=== PATIENT | female | born 1935 | race Caucasian/White ===

== ENCOUNTER 2016-12-17 06:01 | Inpatient (IN) | payer OTHER ==
[~2016-12-17] VITALS: Ht 167.6 cm; Wt 107.2 kg
[2016-12-17 07:22] LABS: BASOPHIL COUNT 0.1 K/uL (0-0.1); EOSINOPHIL (%) 0.7 % (0-5); EOSINOPHIL COUNT 0.1 K/uL (0-0.3); HEMATOCRIT 37.2 % (36.0-46.0); IMMATURE GRANULOCYTE (%) 0.4 % (0.0-0.7); INSTRUMENT ABS NEUTROPHIL CT 7.5 K/uL; LYMPHOCYTE COUNT 1.2 K/uL (1.0-2.8); MCH 29.5 PG (29.0-34.0); MCHC 32.3 G/DL (30.0-36.0); MCV 91.4 FL (83-99); MEAN PLAT.VOLUME 10.6 uM^3 (9.5-12.4); MONOCYTE COUNT 0.9 K/uL (0-0.8); NEUTROPHIL (%) 77.2 % (45-76); NEUTROPHIL COUNT 7.5 K/uL (1.8-6.4); PLATELET COUNT 282 K/uL (156-360); RBC DIS.WIDTH-SD 50.7 % (39-53); RED BLOOD COUNT 4.07 M/uL (3.80-5.20); WHITE BLOOD COUNT 9.7 K/uL (4.1-10.2)
[2016-12-17 07:32] LABS: INTER. NORMALIZED RATIO 1.2; PROTHROMBIN TIME 12.9 SEC (10.2-12.9)
[2016-12-17 07:34] LABS: PTT 28.8 SEC (25-37)
[2016-12-17 07:45] LABS: TROP-I INTERPRETATION NEGATIVE; TROPONIN-I 0.01 ng/mL (0.0-0.30)
[2016-12-17 07:46] LABS: CHLORIDE 105 mEq/L (99-109); MAGNESIUM 1.7 mg/dL (1.3-2.7); POTASSIUM 4.9 mEq/L (3.7-5.4); SODIUM 136 mEq/L (136-147)
[2016-12-17 07:48] LABS: GLUCOSE 235 mg/dL (70-99)
[2016-12-17 07:49] LABS: ANION GAP 10 MEQ/L (2-14)
[2016-12-17 07:51] LABS: GFR ESTIMATE (CALCULATED) 35 mL/min/
[2016-12-17 07:52] LABS: UREA NITROGEN (BUN) 39 mg/dL (9-23)
[2016-12-17 08:00] LABS: DIGOXIN < 0.3 ng/mL (0.8-2.0)
[2016-12-17 15:00] VITALS: BP 83/45
[2016-12-17 15:05] LABS: TROP-I INTERPRETATION NEGATIVE; TROPONIN-I 0.01 ng/mL (0.0-0.30)
[2016-12-17] MEDS ORDERED: WELLBUTRIN XL150 MG PO (15:55)
[2016-12-17] MEDS ORDERED: SYNTHROID75 MCG PO (15:55)
[2016-12-17] MEDS ORDERED: SPIRONOLACTONE25 MG PO (15:56)
[2016-12-17] MEDS ORDERED: COREG12.5 M1 PO (15:56)
[2016-12-17] MEDS ORDERED: ADVAIR HFA120 INHALA IH (15:56)
[2016-12-17] MEDS ORDERED: GLIMEPIRIDE2 MG PO (15:57)
[2016-12-17] MEDS ORDERED: PROAIR HFA8.5 GM IH (15:57)
[2016-12-17] MEDS ORDERED: TORSEMIDE10 MG PO (15:57)
[2016-12-17] MEDS ORDERED: ENTRESTO 24 MG1 EACH PO (15:57)
[2016-12-17] MEDS ORDERED: ALLOPURINOL300 MG PO (15:58)
[2016-12-17] MEDS ORDERED: NITROGLYCERIN0.4 MG SL (15:58)
[2016-12-17] MEDS ORDERED: DOCUSATE SODIU100 MG PO (15:58)
[2016-12-17] MEDS ORDERED: MULTI VITAMIN1 EACH PO (15:59)
[2016-12-17] MEDS ORDERED: KLOR-CON M2020 MEQ PO (15:59)
[2016-12-17] MEDS ORDERED: CRANBERRY500 M1 PO (16:00)
[2016-12-17] MEDS ORDERED: CINNAMON500 MG PO (16:00)
[2016-12-17] MEDS ORDERED: NIACIN500 M1 PO (16:00)
[2016-12-17] MEDS ORDERED: ALBUTEROL2.5 MG/3 M IH (16:01)
[2016-12-17 16:10] LABS: POINT-OF-CARE METER ID UU14174216
[2016-12-17 20:23] VITALS: BP 89/54
[2016-12-17 20:27] LABS: TROP-I INTERPRETATION NEGATIVE; TROPONIN-I 0.02 ng/mL (0.0-0.30)
[2016-12-17 20:53] LABS: POINT-OF-CARE METER ID UU14174216
[2016-12-18] VITALS (7 sets, daily range): BP systolic 107–128; BP diastolic 56–76
[2016-12-18 05:25] LABS: HEMATOCRIT 38.4 % (36.0-46.0); MCH 29.9 PG (29.0-34.0); MCV 93.2 FL (83-99); MEAN PLAT.VOLUME 10.7 uM^3 (9.5-12.4); PLATELET COUNT 306 K/uL (156-360); RBC DIS.WIDTH-CV 15.4 % (11.8-14.6); RBC DIS.WIDTH-SD 52.6 % (39-53); RED BLOOD COUNT 4.12 M/uL (3.80-5.20); WHITE BLOOD COUNT 10.6 K/uL (4.1-10.2)
[2016-12-18 05:51] LABS: ANION GAP 10 MEQ/L (2-14); CHLORIDE 106 MEQ/L (99-109); GFR ESTIMATE (CALCULATED) 51 mL/min/; GLUCOSE 149 mg/dL (70-99); POTASSIUM 4.8 MEQ/L (3.7-5.4); SAMPLE HEMOLYSIS CHECK 0; SAMPLE ICTERIC CHECK 0; SAMPLE LIPEMIA CHECK 0; SODIUM 137 MEQ/L (136-147); UREA NITROGEN (BUN) 23 mg/dL (9-23)
[2016-12-18 06:04] LABS: VANCOMYCIN, TROUGH 8.9 MCG/ML (10-20)
[2016-12-18 07:29] LABS: POINT-OF-CARE METER ID UU14174216; POINT-OF-CARE USER ID NUTSLF44
[2016-12-18 09:28] LABS: TYPE OF FLUID PLEURAL
[2016-12-18 09:45] LABS: BODY FLUID RBC'S 9000 /MM^3 (0-100); BODY FLUID WBC'S 3125 /MM^3 (0-500)
[2016-12-18 10:04] LABS: BODY FLUID EOSINOPHILS 0 % (0-25); MONONUCLEAR WBC'S 13 %; POLYNUCLEAR WBC'S 87 % (0-25)
[2016-12-18 10:28] LABS: BODY FLUID LDH 77 IU/L; BODY FLUID PROTEIN 3.6 G/DL
[2016-12-18 11:03] LABS: GLUCOSE 158 mg/dL (70-99); LACTATE DEHYDROGENASE 181 IU/L (20-246)
[2016-12-18 11:25] LABS: POINT-OF-CARE METER ID UU14174216; POINT-OF-CARE USER ID NUTSLF44
[2016-12-18 16:28] LABS: POINT-OF-CARE METER ID UU14174216; POINT-OF-CARE USER ID NUTSLF44
[2016-12-18 21:44] LABS: POINT-OF-CARE METER ID UU14208750
[2016-12-19 03:37] VITALS: BP 124/70
[2016-12-19 06:28] LABS: HEMATOCRIT 35.5 % (36.0-46.0); MCH 31.1 PG (29.0-34.0); MCV 94.4 FL (83-99); MEAN PLAT.VOLUME 11.2 uM^3 (9.5-12.4); PLATELET COUNT 266 K/uL (156-360); RBC DIS.WIDTH-CV 15.3 % (11.8-14.6); RBC DIS.WIDTH-SD 52.5 % (39-53); RED BLOOD COUNT 3.76 M/uL (3.80-5.20); WHITE BLOOD COUNT 9.5 K/uL (4.1-10.2)
[2016-12-19 06:39] LABS: POINT-OF-CARE METER ID UU14208750
[2016-12-19 06:52] LABS: ANION GAP 8 MEQ/L (2-14); CHLORIDE 101 MEQ/L (99-109); GFR ESTIMATE (CALCULATED) 42 mL/min/; GLUCOSE 155 mg/dL (70-99); POTASSIUM 4.7 MEQ/L (3.7-5.4); SAMPLE HEMOLYSIS CHECK 0; SAMPLE ICTERIC CHECK 0; SAMPLE LIPEMIA CHECK 0; SODIUM 132 MEQ/L (136-147); UREA NITROGEN (BUN) 21 mg/dL (9-23)
[2016-12-19 07:43] VITALS: BP 152/114
[2016-12-19 08:30] LABS: INTERNAL CONTROL VALID? YES
[2016-12-19 11:30] VITALS: BP 90/55
[2016-12-19 11:50] VITALS: BP 81/48
[2016-12-19 15:06] VITALS: BP 112/69
[2016-12-19 19:43] VITALS: BP 120/64
[2016-12-20 00:53] VITALS: BP 106/57
[2016-12-20 04:25] VITALS: BP 99/55
[2016-12-20 07:15] LABS: POINT-OF-CARE METER ID UU14208750
[2016-12-20 07:35] VITALS: BP 119/65
[2016-12-20 12:01] LABS: POINT-OF-CARE USER ID PUTDRM
[2016-12-20 14:52] LABS: TYPE OF FLUID PLEURAL
[2016-12-20 15:16] VITALS: BP 141/62
[2016-12-20 15:27] LABS: GLUCOSE 157 mg/dL (70-99)
[2016-12-20 15:28] LABS: LACTATE DEHYDROGENASE 112 IU/L (20-246)
[2016-12-20 15:43] LABS: BODY FLUID EOSINOPHILS 1 % (0-25); BODY FLUID RBC'S 1000 /MM^3 (0-100); BODY FLUID WBC'S 1449 /MM^3 (0-500); MONONUCLEAR WBC'S 24 %; POLYNUCLEAR WBC'S 75 % (0-25)
[2016-12-20 16:31] LABS: POINT-OF-CARE USER ID PUTDRM
[2016-12-20 17:03] LABS: BODY FLUID LDH 60 IU/L
[2016-12-20 23:22] VITALS: BP 128/65
[2016-12-21 06:12] LABS: ANION GAP 8 MEQ/L (2-14); CHLORIDE 106 MEQ/L (99-109); GFR ESTIMATE (CALCULATED) 51 mL/min/; GLUCOSE 147 mg/dL (70-99); SAMPLE HEMOLYSIS CHECK 0; SAMPLE ICTERIC CHECK 0; SAMPLE LIPEMIA CHECK 0; SODIUM 138 MEQ/L (136-147); UREA NITROGEN (BUN) 15 mg/dL (9-23)
[2016-12-21 07:06] LABS: POINT-OF-CARE METER ID UU14208750
[2016-12-21 07:55] VITALS: BP 119/59
[2016-12-21 15:50] VITALS: BP 88/50
[2016-12-21 20:05] VITALS: BP 112/58
[2016-12-21 23:37] VITALS: BP 114/54
[2016-12-22 06:42] LABS: POINT-OF-CARE METER ID UU14208750
[2016-12-22 06:57] VITALS: BP 131/80
[2016-12-22 11:45] LABS: POINT-OF-CARE METER ID UU14208750
[2016-12-22 16:57] VITALS: BP 124/63
[2016-12-22 22:08] LABS: POINT-OF-CARE METER ID UU14208750
[2016-12-23 00:08] VITALS: BP 127/75
[2016-12-23 07:10] VITALS: BP 131/81
[2016-12-23] MEDS ORDERED: AMOX TR-K CLV1 EAC4 PO (08:13)
== END 2016-12-23 10:30 | disposition home health service (06) | DRG 190 ==
LOC: EME 06:01 → EDOF 09:20 → 4EAST 09:20 → ENRESERV 09:25 → EDOF 11:27 → ENRESERV 13:38 → 4EAST 14:52 → ENRESERV 12-18 10:15 → 2EAST 12-18 20:00
PROVIDERS: Emergency Medicine; Hospitalist; Internal Medicine; Internal Medicine Pulmonary Disease
PROC: 5A09357 Assistance with Respiratory Ventilation, Less than 24 Consecutive Hours, Continuous Positive Airway Pressure (ICD-10-PCS; principal; 2016-12-18)
PROC: 0W9B3ZZ Drainage of Left Pleural Cavity, Percutaneous Approach (ICD-10-PCS; principal; 2016-12-18)
PROC: 0W9B3ZZ Drainage of Left Pleural Cavity, Percutaneous Approach (ICD-10-PCS; 2016-12-20)
DX: J44.0 Chronic obstructive pulmonary disease with (acute) lower respiratory infection (principal); I11.0 Hypertensive heart disease with heart failure; J18.9 Pneumonia, unspecified organism; I50.33 Acute on chronic diastolic (congestive) heart failure; E11.9 Type 2 diabetes mellitus without complications; I48.91 Unspecified atrial fibrillation; N17.9 Acute kidney failure, unspecified; Z96.653 Presence of artificial knee joint, bilateral; Z87.891 Personal history of nicotine dependence; Z86.73 Personal history of transient ischemic attack (TIA), and cerebral infarction without residual deficits; I25.10 Atherosclerotic heart disease of native coronary artery without angina pectoris; I25.2 Old myocardial infarction; I48.4 Atypical atrial flutter; I95.9 Hypotension, unspecified; G47.33 Obstructive sleep apnea (adult) (pediatric); R09.02 Hypoxemia; I50.32 Chronic diastolic (congestive) heart failure; J98.11 Atelectasis; J90 Pleural effusion, not elsewhere classified
CPT/HCPCS: 71010; 71020; 71030; 71250; 76942; 80048; 80162; 80202; 82945; 82947; 82947 91; 82948; 83605; 83615; 83615 91; 83735; 84155; 84157; 84443; 84484; 85025; 85027; 85610; 85730; 87040; 87070; 87075; 87116; 87205; 87206; 87449; 88108; 88305; 89051; 93005; 93306; 94640; 94640 76; 94660; 94799; 99202; 99281; 99285; J0456; J1160; J1644; J1815; J2543; J3370; J7030; J7040; J7050

== ENCOUNTER 2016-12-30 16:30 | Emergency (ER) | payer OTHER ==
[~2016-12-30] VITALS: Ht 167.6 cm; Wt 103.1 kg
[~2016-12-30 16:30] MED LIST: ADVAIR HFA120 INHALA IH; ALBUTEROL2.5 MG/3 M IH; ALLOPURINOL300 MG PO; AMOX TR-K CLV1 EAC4 PO; CINNAMON500 MG PO; COREG12.5 M1 PO; CRANBERRY500 M1 PO; DOCUSATE SODIU100 MG PO; ENTRESTO 24 MG1 EACH PO; GLIMEPIRIDE2 MG PO; KLOR-CON M2020 MEQ PO; MULTI VITAMIN1 EACH PO; NIACIN500 M1 PO; NITROGLYCERIN0.4 MG SL; PROAIR HFA8.5 GM IH; SPIRONOLACTONE25 MG PO; SYNTHROID75 MCG PO; TORSEMIDE10 MG PO; WELLBUTRIN XL150 MG PO
[2016-12-30 17:15] LABS: BASOPHIL COUNT 0.1 K/uL (0-0.1); EOSINOPHIL (%) 2.6 % (0-5); EOSINOPHIL COUNT 0.2 K/uL (0-0.3); HEMATOCRIT 34.7 % (36.0-46.0); IMMATURE GRANULOCYTE (%) 0.7 % (0.0-0.7); IMMATURE GRANULOCYTE COUNT 0.1 K/uL; INSTRUMENT ABS NEUTROPHIL CT 4.4 K/uL; LYMPHOCYTE COUNT 1.3 K/uL (1.0-2.8); MCH 29.5 PG (29.0-34.0); MCV 92.3 FL (83-99); MEAN PLAT.VOLUME 10.1 uM^3 (9.5-12.4); MONOCYTE (%) 12.9 % (3-12); MONOCYTE COUNT 0.9 K/uL (0-0.8); NEUTROPHIL (%) 64.2 % (45-76); NEUTROPHIL COUNT 4.4 K/uL (1.8-6.4); PLATELET COUNT 281 K/uL (156-360); RBC DIS.WIDTH-CV 15.8 % (11.8-14.6); RBC DIS.WIDTH-SD 53.1 % (39-53); RED BLOOD COUNT 3.76 M/uL (3.80-5.20); WHITE BLOOD COUNT 6.8 K/uL (4.1-10.2)
[2016-12-30 17:23] LABS: CHLORIDE 105 mEq/L (99-109); POTASSIUM 4.3 mEq/L (3.7-5.4); SODIUM 140 mEq/L (136-147)
[2016-12-30 17:25] LABS: GLUCOSE 184 mg/dL (70-99)
[2016-12-30 17:26] LABS: ANION GAP 16 MEQ/L (2-14)
[2016-12-30 17:29] LABS: GFR ESTIMATE (CALCULATED) 42 mL/min/
[2016-12-30 17:30] LABS: UREA NITROGEN (BUN) 21 mg/dL (9-23)
[2016-12-30 17:41] LABS: TROP-I INTERPRETATION NEGATIVE; TROPONIN-I 0.01 ng/mL (0.0-0.30)
[2016-12-30] MEDS ORDERED: COREG3.125 M1 PO (18:15)
[2016-12-30 19:37] VITALS: BP 103/68
== END 2016-12-30 19:46 | disposition home or self-care (01) ==
LOC: EME 16:30
PROVIDERS: Emergency Medicine
DX: I48.92 Unspecified atrial flutter (principal); I48.91 Unspecified atrial fibrillation; I50.9 Heart failure, unspecified; E11.9 Type 2 diabetes mellitus without complications; I25.2 Old myocardial infarction; Z86.73 Personal history of transient ischemic attack (TIA), and cerebral infarction without residual deficits; F32.9 Major depressive disorder, single episode, unspecified; Z87.891 Personal history of nicotine dependence
CPT/HCPCS: 71010; 80048; 84484; 85025; 93005; 99281; 99285; J0153; J7030

== ENCOUNTER 2017-01-13 11:29 | Inpatient (IN) | payer OTHER ==
[~2017-01-13] VITALS: Ht 167.6 cm; Wt 104.5 kg
[~2017-01-13 11:29] MED LIST changes: +COREG3.125 M1 PO; +NIACIN ER500 MG PO; -NIACIN500 M1 PO
[2017-01-13 11:57] LABS: EOSINOPHIL (%) 0.7 % (0-5); EOSINOPHIL COUNT 0.1 K/uL (0-0.3); HEMATOCRIT 34.9 % (36.0-46.0); IMMATURE GRANULOCYTE (%) 0.3 % (0.0-0.7); INSTRUMENT ABS NEUTROPHIL CT 5.1 K/uL; MCH 29.9 PG (29.0-34.0); MCHC 32.7 G/DL (30.0-36.0); MCV 91.6 FL (83-99); MEAN PLAT.VOLUME 10.8 uM^3 (9.5-12.4); MONOCYTE (%) 12.2 % (3-12); MONOCYTE COUNT 0.9 K/uL (0-0.8); NEUTROPHIL (%) 71.8 % (45-76); NEUTROPHIL COUNT 5.1 K/uL (1.8-6.4); PLATELET COUNT 259 K/uL (156-360); RBC DIS.WIDTH-CV 15.6 % (11.8-14.6); RBC DIS.WIDTH-SD 51.6 % (39-53); RED BLOOD COUNT 3.81 M/uL (3.80-5.20); WHITE BLOOD COUNT 7.1 K/uL (4.1-10.2)
[2017-01-13 12:17] LABS: TROP-I INTERPRETATION NEGATIVE; TROPONIN-I 0.02 ng/mL (0.0-0.30)
[2017-01-13 12:33] LABS: CHLORIDE 100 mEq/L (99-109); POTASSIUM 4.1 mEq/L (3.7-5.4); SODIUM 137 mEq/L (136-147)
[2017-01-13 12:35] LABS: GLUCOSE 140 mg/dL (70-99)
[2017-01-13 12:36] LABS: ANION GAP 13 MEQ/L (2-14)
[2017-01-13 12:37] LABS: TOTAL BILIRUBIN 1.2 mg/dL (0.0-1.0)
[2017-01-13 12:38] LABS: ALKALINE PHOSPHATASE 112 IU/L (3-129)
[2017-01-13 12:39] LABS: GFR ESTIMATE (CALCULATED) 46 mL/min/
[2017-01-13 12:40] LABS: UREA NITROGEN (BUN) 23 mg/dL (9-23)
[2017-01-13 13:12] LABS: ADD MIUA? YES; BILIRUBIN NEGATIVE; BLOOD SMALL; COLOR YELLOW ((YELLOW)); GLUCOSE (STRIP) NEGATIVE; KETONES NEGATIVE; LEUKOCYTES SMALL; NITRITE POSITIVE; PROTEIN (STRIP) NEGATIVE; SPECIFIC GRAVITY 1.008 (1.000-1.030); UROBILINOGEN 0.2 MG/DL (0.2-1.0)
[2017-01-13 13:16] LABS: BACTERIA 2+ /HPF; EPITHELIAL CELLS RARE /HPF; MUCUS TRACE /LPF; RED BLOOD CELLS 0-5 /HPF (0-5); UCUL ADDED? YES; WHITE BLOOD CELLS 0-5 /HPF (0-5)
[2017-01-13] MEDS ORDERED: COREG3.125 M1 PO (13:53)
[2017-01-13] MEDS ORDERED: ASPIR-LOW81 MG PO (13:56)
[2017-01-13] MEDS ORDERED: RESTASIS MULTI5.5 ML BOTH EYES (13:56)
[2017-01-13] MEDS ORDERED: SPIRONOLACTONE25 MG PO (13:56)
[2017-01-13] MEDS ORDERED: FLOVENT 11120 INHALA IH (15:19)
[2017-01-13 17:10] VITALS: BP 122/78
[2017-01-13 19:08] LABS: TROP-I INTERPRETATION NEGATIVE; TROPONIN-I 0.02 ng/mL (0.0-0.30)
[2017-01-13 19:54] VITALS: BP 115/66
[2017-01-13 23:15] VITALS: BP 112/73
[2017-01-14] VITALS (7 sets, daily range): BP systolic 100–152; BP diastolic 58–89
[2017-01-14 01:38] LABS: TROP-I INTERPRETATION NEGATIVE; TROPONIN-I 0.01 ng/mL (0.0-0.30)
[2017-01-14 05:17] LABS: EOSINOPHIL COUNT 0.1 K/uL (0-0.3); HEMATOCRIT 33.8 % (36.0-46.0); IMMATURE GRANULOCYTE (%) 0.4 % (0.0-0.7); INSTRUMENT ABS NEUTROPHIL CT 4.7 K/uL; LYMPHOCYTE COUNT 1.3 K/uL (1.0-2.8); MCH 30.1 PG (29.0-34.0); MCHC 32.2 G/DL (30.0-36.0); MCV 93.4 FL (83-99); MONOCYTE (%) 13.1 % (3-12); MONOCYTE COUNT 0.9 K/uL (0-0.8); NEUTROPHIL (%) 66.8 % (45-76); NEUTROPHIL COUNT 4.7 K/uL (1.8-6.4); PLATELET COUNT 247 K/uL (156-360); RBC DIS.WIDTH-CV 15.6 % (11.8-14.6); RBC DIS.WIDTH-SD 53.7 % (39-53); RED BLOOD COUNT 3.62 M/uL (3.80-5.20)
[2017-01-14 05:44] LABS: 6-HOUR TOBRAMYCIN 7.2 UG/ML; ANION GAP 8 MEQ/L (2-14); CHLORIDE 102 MEQ/L (99-109); GFR ESTIMATE (CALCULATED) 46 mL/min/; GLUCOSE 109 mg/dL (70-99); SAMPLE HEMOLYSIS CHECK 0; SAMPLE ICTERIC CHECK 0; SAMPLE LIPEMIA CHECK 0; SODIUM 138 MEQ/L (136-147); UREA NITROGEN (BUN) 19 mg/dL (9-23)
[2017-01-14 09:04] LABS: POINT-OF-CARE METER ID UU13113803; POINT-OF-CARE USER ID NUTSLF44
[2017-01-14 11:20] LABS: POINT-OF-CARE METER ID UU13113803
[2017-01-14 19:10] LABS: POINT-OF-CARE METER ID UU13113803; POINT-OF-CARE USER ID NUTSLF44
[2017-01-15 05:00] VITALS: BP 118/68
[2017-01-15 07:05] VITALS: BP 123/79
[2017-01-15 08:33] LABS: POINT-OF-CARE METER ID UU13113698
[2017-01-15 09:12] LABS: POINT-OF-CARE METER ID UU13113698
[2017-01-15 10:39] LABS: POINT-OF-CARE METER ID UU13113803; POINT-OF-CARE USER ID NUTSLF44
[2017-01-15 10:48] LABS: INTER. NORMALIZED RATIO 1.3; PROTHROMBIN TIME 14.5 SEC (10.2-12.9)
[2017-01-15 12:12] VITALS: BP 118/68
[2017-01-15 15:45] VITALS: BP 121/73
[2017-01-15 19:24] VITALS: BP 130/68
[2017-01-15 21:11] LABS: POINT-OF-CARE METER ID UU13113781
[2017-01-15 23:40] VITALS: BP 120/78
[2017-01-16] VITALS (7 sets, daily range): BP systolic 112–132; BP diastolic 56–88
[2017-01-16 05:46] LABS: INTER. NORMALIZED RATIO 1.2; PROTHROMBIN TIME 13.2 SEC (10.2-12.9)
[2017-01-16 07:43] LABS: POINT-OF-CARE METER ID UU13113803
[2017-01-16 11:33] LABS: POINT-OF-CARE METER ID UU13113803
[2017-01-16 16:25] LABS: POINT-OF-CARE METER ID UU13113803
[2017-01-17 04:24] VITALS: BP 125/82
[2017-01-17 05:44] LABS: EOSINOPHIL (%) 4.7 % (0-5); EOSINOPHIL COUNT 0.2 K/uL (0-0.3); HEMATOCRIT 33.3 % (36.0-46.0); IMMATURE GRANULOCYTE (%) 0.2 % (0.0-0.7); INSTRUMENT ABS NEUTROPHIL CT 2.2 K/uL; LYMPHOCYTE COUNT 1.4 K/uL (1.0-2.8); MCH 30.3 PG (29.0-34.0); MCHC 32.7 G/DL (30.0-36.0); MCV 92.5 FL (83-99); MEAN PLAT.VOLUME 10.6 uM^3 (9.5-12.4); MONOCYTE (%) 13.3 % (3-12); MONOCYTE COUNT 0.6 K/uL (0-0.8); NEUTROPHIL (%) 49.6 % (45-76); NEUTROPHIL COUNT 2.2 K/uL (1.8-6.4); PLATELET COUNT 277 K/uL (156-360); RBC DIS.WIDTH-CV 15.5 % (11.8-14.6); RBC DIS.WIDTH-SD 52.9 % (39-53); WHITE BLOOD COUNT 4.5 K/uL (4.1-10.2)
[2017-01-17 06:02] LABS: INTER. NORMALIZED RATIO 1.2; PROTHROMBIN TIME 12.9 SEC (10.2-12.9)
[2017-01-17 06:13] LABS: ALKALINE PHOSPHATASE 109 IU/L (3-129); ANION GAP 9 MEQ/L (2-14); CHLORIDE 102 MEQ/L (99-109); GFR ESTIMATE (CALCULATED) 51 mL/min/; GLUCOSE 91 mg/dL (70-99); POTASSIUM 3.9 MEQ/L (3.7-5.4); SAMPLE HEMOLYSIS CHECK 0; SAMPLE ICTERIC CHECK 0; SAMPLE LIPEMIA CHECK 0; SODIUM 140 MEQ/L (136-147); TOTAL BILIRUBIN 0.6 MG/DL (0.0-1.0); UREA NITROGEN (BUN) 16 mg/dL (9-23)
[2017-01-17 07:24] VITALS: BP 135/84
[2017-01-17 07:31] LABS: Estimated Average Glucose 160 mg/dL (70-123); HEMOGLOBIN A1c (GLYCOHEMOGLOB) 7.2 % HGB (Below 5.7)
[2017-01-17 11:32] VITALS: BP 122/74
[2017-01-17 16:25] VITALS: BP 121/75
[2017-01-17 19:15] VITALS: BP 139/90
[2017-01-17 20:51] LABS: POINT-OF-CARE USER ID ENVMNS
[2017-01-17 23:16] VITALS: BP 139/85
[2017-01-18 03:55] VITALS: BP 121/84
[2017-01-18 05:58] LABS: INTER. NORMALIZED RATIO 1.2; PROTHROMBIN TIME 13.6 SEC (10.2-12.9)
[2017-01-18 09:00] VITALS: BP 116/80
[2017-01-18] MEDS ORDERED: COUMADIN1 MG PO (09:52)
[2017-01-18] MEDS ORDERED: LOVENOX60 MG/0.6 SC (09:52)
[2017-01-18] MEDS ORDERED: LOPRESSOR100 M1 PO (09:52)
== END 2017-01-18 14:20 | disposition home or self-care (01) | DRG 300 ==
LOC: EME 11:29 → 4EAST 15:54 → EDOF 15:54 → ENRESERV 15:57 → 4EAST 17:10 → ENPENDDIS 01-18 → 4EAST 01-18 14:20
PROVIDERS: Emergency Medicine; Hospitalist; Internal Medicine
DX: I82.441 Acute embolism and thrombosis of right tibial vein (principal); I48.4 Atypical atrial flutter; I50.32 Chronic diastolic (congestive) heart failure; N39.0 Urinary tract infection, site not specified; E11.9 Type 2 diabetes mellitus without complications; E66.9 Obesity, unspecified; I11.0 Hypertensive heart disease with heart failure; G47.33 Obstructive sleep apnea (adult) (pediatric); I25.10 Atherosclerotic heart disease of native coronary artery without angina pectoris; I48.2 Chronic atrial fibrillation; J90 Pleural effusion, not elsewhere classified; J44.1 Chronic obstructive pulmonary disease with (acute) exacerbation; J20.9 Acute bronchitis, unspecified; I48.1 Persistent atrial fibrillation; I25.2 Old myocardial infarction; J98.11 Atelectasis; Z68.38 Body mass index [BMI] 38.0-38.9, adult; Z82.3 Family history of stroke; Z86.73 Personal history of transient ischemic attack (TIA), and cerebral infarction without residual deficits; Z87.891 Personal history of nicotine dependence; Z79.4 Long term (current) use of insulin; Z96.653 Presence of artificial knee joint, bilateral; D73.5 Infarction of spleen; Z86.718 Personal history of other venous thrombosis and embolism
CPT/HCPCS: 71010; 71030; 71250; 76942; 78582; 80048; 80053; 80200; 81003; 82948; 83036; 83605; 83880; 84484; 85025; 85610; 85730; 87040; 87070; 87077; 87086; 87186; 87205; 87449; 93005; 93970; 94640; 94640 76; 94660; 94799; 99202; 99281; 99285; A9540; A9567; J0696; J1644; J1650; J1815; J2543; J3260; J3370; J7030; J7050

== ENCOUNTER 2017-08-20 12:49 | Emergency (ER) | payer OTHER ==
[~2017-08-20] VITALS: Ht 167.6 cm; Wt 122.7 kg
[~2017-08-20 12:49] MED LIST changes: +ASPIR-LOW81 MG PO; +COUMADIN1 MG PO; +FLOVENT 11120 INHALA IH; +LOPRESSOR100 M1 PO; +LOVENOX60 MG/0.6 SC; +RESTASIS MULTI5.5 ML BOTH EYES
[2017-08-20] MEDS ORDERED: KEFLEX500 MG PO (14:30)
[2017-08-20] MEDS ORDERED: LORTAB 5-325 M1 EACH PO (14:30)
[2017-08-20 14:55] VITALS: BP 135/98
== END 2017-08-20 14:29 | disposition home or self-care (01) ==
LOC: EME 12:49
DX: L03.115 Cellulitis of right lower limb (principal); M25.561 Pain in right knee; Z96.651 Presence of right artificial knee joint; E11.9 Type 2 diabetes mellitus without complications; F32.9 Major depressive disorder, single episode, unspecified; I25.2 Old myocardial infarction; Z86.73 Personal history of transient ischemic attack (TIA), and cerebral infarction without residual deficits; Z87.891 Personal history of nicotine dependence
CPT/HCPCS: 73564; 99281; 99284